=== PATIENT | male | born 1960 | race African-American/Black ===

== ENCOUNTER 2020-06-14 18:45 | Emergency (ER) | payer OTHER ==
[~2020-06-14] VITALS: Ht 177.8 cm; Wt 77.1 kg
[2020-06-14 18:56] VITALS: BP 132/85
[2020-06-14 18:56] LABS: BASOPHILS % (AUTO) 1.9 % (0.0-2.0); EOSINOPHILS % (AUTO) 0.7 % (0.0-3.0); HEMATOCRIT 48.1 % (42.0-52.0); HEMOGLOBIN 15.2 G/DL (14.2-18.0); MEAN CORPUSCULAR VOLUME 91 FL (80-99); MONOCYTES % (AUTO) 15.3 % (1.0-10.0); NEUTROPHILS % (AUTO) 50.1 % (45.0-75.0); PLATELET COUNT 206 K/UL (150-450); RED BLOOD COUNT 5.27 M/UL (4.70-6.10); WHITE BLOOD COUNT 8.6 K/UL (4.8-10.8)
--- NOTE | 2020-06-14 19:05 | Emergency Room Report ---
History of Present Illness General Chief Complaint: Altered Level of Consciousness Source: Patient (Dakota Lacy MD) Present Illness HPI Disclaimer: Please note that this report is being documented using [employer] technology. This can lead to erroneous entry secondary to incorrect interpretation by the dictating instrument. HPI: 67-year-old male presents for evaluation of altered mental status. Found by EMS on the street unable to ambulate. Patient was slurring speech and according to EMS admitted to using crystal meth to them prior to arrival. The patient now denies any drug or alcohol use. He is somnolent but arousable. Oriented to self but not time or place. He is reporting pain in the left ring finger but cannot recall a specific injury. Denies pain in rest of the hand or the wrist. He does not provide any other information is drifting off to sleep during my exam. PMH: Unable to obtain from patient PSH: Unable to obtain from patient Allergies: Unable to obtain from patient Social Hx: Unable to obtain from patient (Dakota Lacy MD) Allergies: Coded Allergies: No Known Allergies (Unverified , 06/14/20) COVID-19 Screening Contact w/high risk pt: No Experienced COVID-19 symptoms?: No COVID-19 Testing performed [employer]LLING [employer]ODUCTION SUPERINTENDENT: No (Dakota Lacy MD) Nursing Documentation-PMH Past Medical History Deferred: Pt Cognitively Impaired Past Medical History: Deferred (Dakota Lacy MD) Review of Systems All Other Systems: limited - Unable to obtain from patient due to clinical condition (Dakota Lacy MD) Physical Exam Vital Signs Date Time Temp Pulse Resp B/P (MAP) Pulse Ox O2 Delivery O2 Flow Rate FiO2 06/14/20 18:39 98.2 107 20 137/89 (105) 98 Room Air 06/14/20 18:56 100 General: Somnolent but arousable, no acute distress HEENT: NC/AT. EOMI. PERRLA. Mildly injected sclera bilaterally. Very dry mucous membranes. Cardiovascular: RRR. S1 and S2 normal. No murmur appreciated Resp: Normal work of breathing. No cough, wheezing or crackles appreciated Abdomen: Abdomen is soft, nondistended. Nontender Skin: Intact. No abrasions, laceration or rash over the exposed skin MSK: Normal tone and bulk. Moving all extremities. No obvious deformity. Tenderness palpation over the PIPJ and DIPJ of the left ring finger. No obvious deformity. No circumferential swelling. Able to passively range the digit. No other pain or deformity appreciated in the hand or wrist. No anatomic snuffbox tenderness. Neuro: Somnolent but arousable. GCS 13. Mildly dysarthric. Poor historian. (Dakota Lacy MD) Medical Decision Making Diagnostic Impression: Primary Impression: Alcohol intoxication Additional Impressions: Finger fracture PCP (phencyclidine) abuse Cocaine abuse ER Course 67-year-old male brought in by ambulance from the street for altered mental status. Concern for intoxication, drug abuse, occult head injury, electrolyte abnormality, severe dehydration. I find no signs of outward trauma though will obtain an x-ray of the left hand given the patient's complaint as well as a head CT as he is a poor historian. Broad labs ordered. Patient has no acute distress and rather stable vital signs protecting his airway. GCS 13. Talk screen positive for PCP, cocaine, marijuana and alcohol elevated. Consistent with the patient's physical exam. CT the head unremarkable for acute injury. X -ray concerning for a middle phalanx fracture of the left ring finger and splint was applied. Patient remains intoxicated will require metabolization in the ED. Discharge when sober. Laboratory Tests Test 06/14/20 18:45 06/14/20 20:05 White Blood Count 8.6 K/UL (4.8-10.8) Red Blood Count 5.27 M/UL (4.70-6.10) Hemoglobin 15.2 G/DL (14.2-18.0) Hematocrit 48.1 % (42.0-52.0) Mean Corpuscular Volume 91 FL (80-99) Mean Corpuscular Hemoglobin 28.9 PG (27.0-31.0) Mean Corpuscular Hemoglobin Concent 31.6 G/DL (32.0-36.0) L Red Cell Distribution Width 14.0 % (11.6-14.8) Platelet Count 206 K/UL (150-450) Mean Platelet Volume 6.4 FL (6.5-10.1) L Neutrophils (%) (Auto) 50.1 % (45.0-75.0) Lymphocytes (%) (Auto) 32.0 % (20.0-45.0) Monocytes (%) (Auto) 15.3 % (1.0-10.0) H Eosinophils (%) (Auto) 0.7 % (0.0-3.0) Basophils (%) (Auto) 1.9 % (0.0-2.0) Sodium Level 132 MMOL/L (136-145) L Potassium Level 3.5 MMOL/L (3.5-5.1) Chloride Level 96 MMOL/L (98-107) L Carbon Dioxide Level 25 MMOL/L (21-32) Anion Gap 11 mmol/L (5-15) Blood Urea Nitrogen 9 mg/dL (7-18) Creatinine 0.9 MG/DL (0.55-1.30) Estimated Glomerular Filtration Rate > 60 mL/min (>60) Glucose Level 103 MG/DL (74-106) Calcium Level 9.2 MG/DL (8.5-10.1) Total Bilirubin 0.6 MG/DL (0.2-1.0) Aspartate Amino Transferase (AST) 148 U/L (15-37) H Alanine Aminotransferase (ALT) 97 U/L (12-78) H Alkaline Phosphatase 67 U/L (46-116) Total Protein 8.6 G/DL (6.4-8.2) H Albumin 3.7 G/DL (3.4-5.0) Globulin 4.9 g/dL Albumin/Globulin Ratio 0.8 (1.0-2.7) L Salicylates Level 2.2 ug/mL (2.8-20) L Acetaminophen Level < 2 MCG/ML (10-30) L Serum Alcohol 346 mg/dL Urine Opiates Screen Negative (NEGATIVE) Urine Barbiturates Screen Negative (NEGATIVE) Phencyclidine (PCP) Screen Positive (NEGATIVE) H Urine Amphetamines Screen Negative (NEGATIVE) Urine Benzodiazepines Screen Negative (NEGATIVE) Urine Cocaine Screen Positive (NEGATIVE) H Urine Marijuana (THC) Screen Positive (NEGATIVE) H (Dakota Lacy MD) ER Course Procedure: XRAY Hand Complete L Indication: Pain, status post fall Technique: 3 views left hand Comparison: none Findings: There is a comminuted fracture of the base of the fourth proximal phalanx. This involves the articular surface. No other acute fractures. There are degenerative changes of the second through fifth distal interphalangeal joints, and of the first carpometacarpal joint. Impression: Positive for fourth proximal phalangeal fracture. Dictated By: Danilo Stephens MD Electronically Signed By: Danilo Stephens MD Signed Date/Time 06/15/20 0856 CC: Dakota Lacy MD Was notified of results by radiology Patient already splinted by previous doctor (Ricky Miller MD) Other X-Ray Diagnostic Results Other X-Ray Diagnostic Results : X-Ray ordered: Left hand # of Views/Limited Vs Complete: Complete Indication: Pain EP Interpretation: Yes Interpretation: other - Fracture the proximal end of the middle phalanx left middle finger Impression: Other - Fracture of the middle phalanx left middle finger Electronically Signed by: Electronically signed by Dr. Dakota Lacy (Dakota Lacy MD) CT/MRI/US Diagnostic Results CT/MRI/US Diagnostic Results : Impression CT Head IMPRESSION: 1. No acute intracranial abnormality. 2. Mild chronic senescent findings above. 3. Otherwise unremarkable study. Dictated By: David Moody MD Electronically Signed By: David Moody MD Signed Date/Time 06/14/20 1936 CC: Dakota Lacy MD (Dakota Lacy MD) Last Vital Signs Date Time Temp Pulse Resp B/P (MAP) Pulse Ox O2 Delivery O2 Flow Rate FiO2 06/14/20 18:56 102 18 Room Air 100 06/14/20 18:56 98.2 132/85 100 (Dakota Lacy MD) Disposition: HOME, SELF-CARE Condition: Stable Scripts Ibuprofen* (MOTRIN*) 600 Mg Tablet 600 MG ORAL Q6H PRN for For Pain, #30 TAB 0 Refills Prov: Dakota Lacy MD 06/14/20 Referrals: NOT CHOSEN IPA/,REFERRING (PCP) Dakota Lacy MD Jun 14, 2020 19:05 Ricky Miller MD Jun 15, 2020 09:08
[2020-06-14 19:14] LABS: ANION GAP 11 mmol/L (5-15); BLOOD UREA NITROGEN 9 mg/dL (7-18); CALCIUM 9.2 MG/DL (8.5-10.1); CARBON DIOXIDE 25 MMOL/L (21-32); CHLORIDE 96 MMOL/L (98-107); CREATININE 0.9 MG/DL (0.55-1.30); POTASSIUM 3.5 MMOL/L (3.5-5.1); SODIUM 132 MMOL/L (136-145)
[2020-06-14 19:20] LABS: ALANINE AMINOTRANSFERASE 97 U/L (12-78); ALBUMIN 3.7 G/DL (3.4-5.0); ALBUMIN/GLOBULIN RATIO 0.8 (1.0-2.7); ALKALINE PHOSPHATASE 67 U/L (46-116); ASPARTATE AMINO TRANSFERASE 148 U/L (15-37); BILIRUBIN,TOTAL 0.6 MG/DL (0.2-1.0)
--- NOTE | 2020-06-14 19:38 | Diagnostic Imaging Report ---
EXAM: CT Head Without Intravenous Contrast CLINICAL HISTORY: INJ TECHNIQUE: Axial computed tomography images of the head/brain without intravenous contrast. CTDI is 53 mGy and DLP is 939 mGy-cm. One or more of the following dose reduction techniques were used: automated exposure control, adjustment of the mA and/or kV according to patient size, use of iterative reconstruction technique. COMPARISON: No relevant prior studies available. FINDINGS: Brain: Parenchymal volume loss. Nonspecific white matter hypoattenuation likely secondary to chronic microvascular ischemia. Cerebrovascular ASVD. No hemorrhage. Ventricles: Unremarkable. No ventriculomegaly. Bones/joints: Unremarkable. No acute fracture. Soft tissues: Unremarkable. Sinuses: Unremarkable as visualized. No acute sinusitis. Mastoid air cells: Unremarkable as visualized. No mastoid effusion. IMPRESSION: 1. No acute intracranial abnormality. 2. Mild chronic senescent findings above. 3. Otherwise unremarkable study.
[2020-06-14] MEDS ORDERED: IBUPROFEN600 M1 ORAL (19:44)
[2020-06-14 21:30] VITALS: BP 128/81
[2020-06-15 01:40] VITALS: BP 138/87
[2020-06-15 03:39] VITALS: BP 128/77
[2020-06-15 05:00] VITALS: BP 122/69
--- NOTE | 2020-06-15 09:02 | Diagnostic Imaging Report ---
Indication: Pain, status post fall Technique: 3 views left hand Comparison: none Findings: There is a comminuted fracture of the base of the fourth proximal phalanx. This involves the articular surface. No other acute fractures. There are degenerative changes of the second through fifth distal interphalangeal joints, and of the first carpometacarpal joint. Impression: Positive for fourth proximal phalangeal fracture.
== END 2020-06-15 05:00 | disposition home or self-care (01) ==
LOC: EDBD 18:45 → EMR 18:59 → EDBD 18:59 → EMR 06-15 05:00
DX: F10.129 Alcohol abuse with intoxication, unspecified (principal); F16.10 Hallucinogen abuse, uncomplicated; F14.10 Cocaine abuse, uncomplicated; S62.615A Displaced fracture of proximal phalanx of left ring finger, initial encounter for closed fracture
CPT/HCPCS: 29130; 36415; 70450; 73130; 80053; 80307; 85025; G0480; G0481; Z7502; 99284